=== PATIENT | female | born 1960 | race Hispanic/Latino ===

== ENCOUNTER 2022-07-31 14:02 | Observation (INO) | payer OTHER ==
[~2022-07-31] VITALS: Ht 165.1 cm; Wt 71.7 kg
[2022-07-31] MEDS ORDERED: SODIUM CHLORIDE 0.9% 1000ML 1,000 ML IV ONE (14:45)
[2022-07-31 14:54] LABS: BASOPHILS % 0.2 % (0.0-1.0); HEMATOCRIT 43.5 % (34.2-44.1); HEMOGLOBIN 15.4 g/dL (12.0-16.0); LYMPHOCYTES % 15.8 % (18.0-39.1); MEAN CORPUSCULAR HGB CONC 35.4 g/dL (31-35); MEAN CORPUSCULAR VOLUME 84.8 fL (81-99); MONOCYTES # (AUTO) 0.2 (0.2-0.8); MONOCYTES % 2.3 % (4.4-11.3); NEUTROPHILS # (AUTO) 5.4 (2.1-6.9); NEUTROPHILS % 81.4 % (38.7-80.0); PLATELET COUNT 235 x10e3/uL (140-360); RED BLOOD COUNT 5.13 x10e6/uL (3.6-5.1); RED CELL DISTRIBUTION WIDTH 11.9 % (11.7-14.4)
[2022-07-31 15:08] LABS: ALBUMIN 4.6 g/dL (3.5-5.0); ALBUMIN/GLOBULIN RATIO 1.1 (0.8-2.0); ANION GAP 16.8 mmol/L (8-16); CALCIUM 10.2 mg/dL (8.4-10.2); CREATININE, SERUM 0.89 mg/dL (0.57-1.11); POTASSIUM 3.8 mmol/L (3.5-5.1)
[2022-07-31 15:27] LABS: CLARITY,URINE CLEAR (CLEAR); COLOR,URINE YELLOW (YELLOW)
[2022-07-31 15:28] LABS: AMPHETAMINES SCREEN,URINE NEGATIVE (NEGATIVE); BENZODIAZEPINES SCREEN,URINE NEGATIVE (NEGATIVE); KETONES,URINE TRACE (NEGATIVE); LEUKOCYTE ESTERASE ,URINE NEGATIVE (NEGATIVE); NITRITE,URINE NEGATIVE (NEGATIVE); PHENCYCLIDINE SCREEN,URINE NEGATIVE (NEGATIVE); PROTEIN,URINE DIPSTICK NEGATIVE (NEGATIVE); URINE UROBILINOGEN 0.2 mg/dL (0.2 - 1)
[2022-07-31 16:03] LABS: FREE T4 (FREE THYROXINE) 1.18 ng/dL (0.8-1.8); THYROID STIMULATING HORMONE 1.378 uIU/mL (0.350-4.940)
[2022-07-31 16:04] LABS: SALICYLATE < 5.0 mg/dL (0-30)
[2022-07-31] MEDS ORDERED: ASPIRIN 81 MG CHEW TAB PO ONE (17:15)
[2022-07-31 20:00] VITALS: BP 147/74
[2022-07-31 21:55] VITALS: BP 147/74
[2022-07-31 22:02] VITALS: BP 147/74
[2022-07-31] MEDS ORDERED: MULTI-VITAMIN1 EACH PO (22:21)
[2022-07-31] MEDS ORDERED: LOSARTAN POTASS25 MG PO (22:21)
[2022-08-01] VITALS: BP 126/73
[2022-08-01 06:32] LABS: BASOPHILS % 0.3 % (0.0-1.0); EOSINOPHILS # (AUTO) 0.1 (0.0-0.4); EOSINOPHILS % 1.3 % (0.0-6.0); HEMATOCRIT 40.1 % (34.2-44.1); HEMOGLOBIN 13.4 g/dL (12.0-16.0); LYMPHOCYTES # (AUTO) 2.2 (1.0-3.2); LYMPHOCYTES % 34.4 % (18.0-39.1); MEAN CORPUSCULAR HEMOGLOBIN 29.4 pg (28-32); MEAN CORPUSCULAR HGB CONC 33.4 g/dL (31-35); MEAN CORPUSCULAR VOLUME 87.9 fL (81-99); MONOCYTES # (AUTO) 0.5 (0.2-0.8); MONOCYTES % 8.3 % (4.4-11.3); NEUTROPHILS # (AUTO) 3.5 (2.1-6.9); NEUTROPHILS % 55.5 % (38.7-80.0); PLATELET COUNT 226 x10e3/uL (140-360); RED BLOOD COUNT 4.56 x10e6/uL (3.6-5.1); RED CELL DISTRIBUTION WIDTH 11.9 % (11.7-14.4)
[2022-08-01] MEDS ORDERED: DOCUSATE SODIUM 100 MG CAP PO PRN (07:00)
[2022-08-01] MEDS ORDERED: ACETAMINOPHEN 325 MG TAB PO PRN (07:00)
[2022-08-01] MEDS ORDERED: ONDANSETRON HCL INJ 2MG/ML 2ML 2 MG/ML VIAL IV PRN (07:00)
[2022-08-01 07:03] LABS: ALBUMIN 3.8 g/dL (3.5-5.0); ALBUMIN/GLOBULIN RATIO 1.2 (0.8-2.0); ANION GAP 14.2 mmol/L (8-16); CALCIUM 9.3 mg/dL (8.4-10.2); CREATININE, SERUM 0.72 mg/dL (0.57-1.11); POTASSIUM 3.2 mmol/L (3.5-5.1)
[2022-08-01 07:34] LABS: CHOL/HDL RATIO 4.7 (3.0-3.6)
[2022-08-01 08:02] VITALS: BP 135/71
[2022-08-01] MEDS ORDERED: POTASSIUM CHLORIDE 20 MEQ TAB CR PO ONE (08:30)
[2022-08-01] MEDS: MULTIVITAMINS/MINERALS TAB PO SCH (09:09)
[2022-08-01] MEDS: LOSARTAN POTASSIUM 25 MG TAB PO SCH (09:10)
[2022-08-01] MEDS: SODIUM CHLORIDE 0.45% 1,000 ML IV SCH ×2 (09:12→21:50)
[2022-08-01 09:25] VITALS: BP 135/71
[2022-08-01 11:23] VITALS: BP 132/75
[2022-08-01] MEDS ORDERED: ONDANSETRON HCL 4 MG ORAL DISINTEGRATING TAB PO PRN (13:15)
[2022-08-01 15:16] VITALS: BP 130/77
[2022-08-01 20:00] VITALS: BP 120/77
[2022-08-02] VITALS: BP 131/62
[2022-08-02 04:00] VITALS: BP 141/77
[2022-08-02 08:55] VITALS: BP 130/68
[2022-08-02 09:04] VITALS: BP 130/68
[2022-08-02] MEDS: MULTIVITAMINS/MINERALS TAB PO SCH (10:43)
[2022-08-02] MEDS: LOSARTAN POTASSIUM 25 MG TAB PO SCH (10:44)
[2022-08-02] MEDS ORDERED: ATORVASTATIN CA10 MG PO (10:49)
[2022-08-02] MEDS ORDERED: ECOTRIN81 MG PO (10:49)
[2022-08-02] MEDS ORDERED: ATORVASTATIN 10 MG TAB PO SCH (21:00)
== END 2022-08-02 12:05 | disposition home or self-care (01) ==
LOC: ER 14:32 → ERHOLD 17:17 → MED/SURG2 19:48
PROVIDERS: ADMIT Internal Medicine; ATTEND Internal Medicine
DX: G93.41 Metabolic encephalopathy (principal); I10 Essential (primary) hypertension; E11.9 Type 2 diabetes mellitus without complications; R00.1 Bradycardia, unspecified; X30.XXXA Exposure to excessive natural heat, initial encounter; Z20.822 Contact with and (suspected) exposure to COVID-19; Z90.710 Acquired absence of both cervix and uterus; Y93.89 Activity, other specified; Y92.018 Other place in single-family (private) house as the place of occurrence of the external cause
CPT/HCPCS: 0223U; 36415; 70450; 70551; 71045; 80053; 80061; 80307; 80320; 80329; 81001; 82550; 82553; 82948; 83036; 84439; 84443; 84484; 85025; 93005; 96360; 96361; 99251; 99284; G0378; J7030